=== PATIENT | male | born 1940 | race Caucasian/White ===

== ENCOUNTER 2019-10-16 16:30 | Emergency (ER) | payer OTHER ==
[~2019-10-16] VITALS: Ht 180.3 cm; Wt 98.9 kg
[2019-10-16 16:35] VITALS: Ht 180.3 cm; Wt 98.9 kg
[2019-10-16 17:15] LABS: BASOPHIL % 0.2 % (0-2); PLATELET COUNT 237 x10^3mcL (130-400); RED CELL DISTRIBUTION WIDTH 14.3 % (11.5-14.5)
[2019-10-16 17:27] VITALS: BP 131/74
[2019-10-16 17:39] LABS: CALCIUM 8.9 mg/dL (8.5-10.1); CARBON DIOXIDE 25.7 mmol/L (21-32); CHLORIDE SERUM 107 mmol/L (98-107); CREATININE SERUM 0.8 mg/dL (0.7-1.3); GLUCOSE SERUM 130 mg/dL (74-106); POTASSIUM SERUM 3.6 mmol/L (3.5-5.1); SODIUM SERUM 143 mmol/L (136-145)
[2019-10-16 17:44] LABS: ALBUMIN 3.5 g/dL (3.4-5.0); ALKALINE PHOSPHATASE 102 U/L (46-116); ALT/SGPT 20 U/L (16-63); AST/SGOT 16 U/L (15-37); BILIRUBIN TOTAL 0.41 mg/dL (0.20-1.00); TOTAL PROTEIN, SERUM 7.1 g/dL (6.4-8.2)
== END 2019-10-16 17:27 | disposition short-term general hospital (02) ==
LOC: ED 16:30
PROVIDERS: Emergency Medicine
DX: I21.29 ST elevation (STEMI) myocardial infarction involving other sites (principal); I24.9 Acute ischemic heart disease, unspecified; I10 Essential (primary) hypertension; J44.9 Chronic obstructive pulmonary disease, unspecified; Z88.0 Allergy status to penicillin
CPT/HCPCS: 83880; J2060; J2270; J2405; Q0092